=== PATIENT | female | born 1960 | race Caucasian/White ===

== ENCOUNTER 2020-08-25 11:37 | Emergency (ER) | payer OTHER ==
[~2020-08-25] VITALS: Ht 167.6 cm; Wt 113.4 kg
[2020-08-25] MEDS ORDERED: PENICILLIN G BENZATHINE LA 1.2 MU TBX IM NR (12:00)
[2020-08-25] MEDS ORDERED: DEXAMETHASONE SOD PHOS 10 MG/1 ML VIAL IM NR (12:00)
== END 2020-08-25 12:09 | disposition home or self-care (01) ==
LOC: ER 11:53
DX: J02.0 Streptococcal pharyngitis (principal)
CPT/HCPCS: 99282; J0561; J1100

== ENCOUNTER → 2021-01-01 | Outpatient (CLI) | payer OTHER | LOC: MAMMO 13:58 | PROVIDERS: ATTEND Internal Medicine | DX: Z12.31 Encounter for screening mammogram for malignant neoplasm of breast (principal) | CPT/HCPCS: 77067 ==